=== PATIENT | male | born 1965 | race American Indian/Alaskan Native ===

== ENCOUNTER 2021-05-20 02:37 | Inpatient (IN) | payer SELFPAY ==
[2021-05-20] MEDS ORDERED: NITROGLYCERIN 0.4 MG TAB SUBL SL ONE (02:47)
[2021-05-20] MEDS ORDERED: SODIUM CHLORIDE 0.9% 1000 ML 1,000 ML IV ONE (02:47)
--- NOTE | 2021-05-20 02:47 | Emergency Department Report ---
ED Chest Pain HPI - General Stated Complaint: CHEST PAIN Time Seen by Provider: 05/20/21 02:46 - History of Present Illness Initial Comments: Patient presents by EMS secondary to chest pain. He started having chest pain he states that 2 to 3 days ago. He states that it is worse when he is up moving around. The pain does not really radiate. It is across the chest. He has been short of breath associate with this. Today, getting off work, his symptoms worsened. He called EMS and the patient was transported here. EMS transmitted an EKG that was concerning for ST elevation in V3 and possibly V2. There was no ST depression or reciprocal change noted. Patient was brought here for his presentation. Patient states that he is still having pain. EMS had administered aspirin prior to arrival. - Related Data Allergies Allergy/AdvReac Type Severity Reaction Status Date / Time No Known Allergies Allergy Verified 05/20/21 02:56 Heart Score - HEART Score History: Highly suspicious EKG: Significant ST-depression Age: 45-65 Risk factors: > 3 risk factors or hx of atherosclerotic disease Troponin: < normal limit (Not available at the time of this note) HEART Score: 7 - EKG Read Time Time EKG Completed: 02:41 EKG Read Time: 02:41 ED Review of Systems ROS: Stated complaint: CHEST PAIN Other details as noted in HPI Comment: All other systems reviewed and negative Constitutional: denies: fever Eyes: denies: vision change ENT: denies: throat pain Respiratory: denies: cough Cardiovascular: as per HPI Endocrine: denies: unexplained weight loss Gastrointestinal: denies: abdominal pain Genitourinary: denies: dysuria Musculoskeletal: denies: back pain Skin: denies: rash Neurological: denies: headache Hematological/Lymphatic: denies: easy bruising ED Past Medical Hx - Past Medical History Hx Hypertension: Yes Hx Heart Attack/AMI: Yes - Surgical History Hx Coronary Stent: No Additional Surgical History: Leg stent - Family History Family history: hypertension - Social History Substance Use Type: Other (Prior drug abuse) ED Physical Exam - General Limitations: No Limitations, Other (Pulse ox noted and normal) General appearance: alert, in distress (Mild) - Head Head exam: Present: atraumatic, normocephalic - Eye Eye exam: Present: normal appearance, EOMI. Absent: scleral icterus - ENT ENT exam: Present: normal orophraynx, normal external ear exam - Neck Neck exam: Present: normal inspection. Absent: meningismus - Respiratory Respiratory exam: Present: normal lung sounds bilaterally. Absent: respiratory distress - Cardiovascular Cardiovascular Exam: Present: regular rate, normal rhythm - GI/Abdominal GI/Abdominal exam: Present: soft. Absent: tenderness - Extremities Exam Extremities exam: Present: normal capillary refill. Absent: calf tenderness - Back Exam Back exam: Absent: CVA tenderness (R), CVA tenderness (L) - Neurological Exam Neurological exam: Present: alert, oriented X3, CN II-XII intact. Absent: motor sensory deficit - Psychiatric Psychiatric exam: Present: normal affect, normal mood - Skin Skin exam: Present: diaphoretic ED Course Vital Signs 05/20/21 05/20/21 02:55 02:56 Temperature 97.5 F L Pulse Rate 83 86 Respiratory 18 Rate Blood Pressure 105/75 Blood Pressure 105/75 [Right] O2 Sat by Pulse 98 Oximetry - Reevaluation(s) Reevaluation #1: 05/20/21 02:47 [id number] STEMI was called. EMS have been met upon arrival. The EKG they had transmitted have been reviewed. Patient was questioned. EMS had obtained two other EKGs that were reviewed. These had not been seen prior to patient arrival. These were consistent with progression which is confirmed based on her EKG. Reevaluation #2: 05/20/21 02:55 Dr. Peterson was made aware of the patient's presentation Reevaluation #3: 05/20/21 03:01 The hospitalist did see the patient in the emergency department. SERGEY score - Sergey Score Age > 65: (0) No Aspirin use within the Past 7 Days: (0) No 3 or more CAD Risk Factors: (1) Yes 2 or more Angina events in past 24 hrs: (1) Yes Known CAD with more than 50% Stenosis: (1) Yes Elevated Cardiac Markers: (0) No (Not available at the time of this note) ST Deviation Greater than 0.5mm: (1) Yes SERGEY Score: 4 ED Medical Decision Making - Lab Data Rhythm strip: Normal sinus rhythm without ectopy per monitor observe 10 seconds. - EKG Data -: EKG Interpreted by Me - EKG Data When compared to previous EKG there are: previous EKG unavailable 05/20/21 03:06 EKG obtained at 2:41 AM shows a sinus rhythm at 86. Patient has ST elevation in V1 through the five. There is no ST depression noted. Patient has T wave flattening in three as well as V6. QRS is normal at 95. QT corrected is prolonged at 504. EKG is consistent with STEMI. This is clearly different than the field EKG. The prehospital EKG that was sent showed questionable ST elevation in V3. There was T wave inversion in V6. There were two other prehospital EKGs obtained which actually showed findings consistent with progression. These were not seen prior to patient arrival. There is no old EKG for comparison. - Medical Decision Making Patient presents secondary to chest pain and has evidence of dynamic EKG changes consistent with STEMI. He reportedly has known heart disease and had a heart attack in January of this year. He however states that there was no catheterization done. Regardless, there is no pulse deficit to suggest aortic dissection. He has good breath sounds. I am not concerned for pneumothorax. Patient has no trauma that would suggest injury. Patient be taken emergently to [facility]. Cardiology has already been notified. Critical Care Time: Yes (45 minutes exclusive of all procedures) Critical care attestation.: If time is entered above; I have spent that time in minutes in the direct care of this critically ill patient, excluding procedure time. ED Disposition Clinical Impression: Noncompliance STEMI (ST elevation myocardial infarction) Qualifiers: Involved coronary artery: unspecified coronary artery Qualified Code(s): I21.3 - ST elevation (STEMI) myocardial infarction of unspecified site Disposition: 09 ADMITTED INPATIENT Is pt being admited?: Yes Condition: Stable
[2021-05-20] MEDS ORDERED: HEPARIN 10,000 UNITS/10 ML VIAL IV ONE ×5 (02:50→05:03)
[2021-05-20 03:05] LABS: Basophils % (Auto) 0.4 % (0.0-1.8); Eosinophils # (Auto) 0.2 K/mm3 (0.0-0.4); Eosinophils % (Auto) 1.6 % (0.0-4.3); Hematocrit 37.5 % (35.5-45.6); Hemoglobin 11.8 gm/dl (11.8-15.2); Lymphocytes # (Auto) 1.9 K/mm3 (1.2-5.4); Lymphocytes % (Auto) 20.2 % (13.4-35.0); Mean Corpuscular HGB Conc 31 % (32-34); Mean Corpuscular Volume 84 fl (84-94); Monocytes # (Auto) 0.9 K/mm3 (0.0-0.8); Monocytes % (Auto) 9.4 % (0.0-7.3); Platelet Count 349 K/mm3 (140-440); Red Blood Count 4.45 M/mm3 (3.65-5.03)
[2021-05-20] MEDS ORDERED: HEPARIN/NS 5000 UNIT/500ML 1,000 ML IR ONE (03:14)
[2021-05-20] MEDS ORDERED: METOCLOPRAMIDE 10 MG/2 ML INJ IV ONE (03:14)
[2021-05-20] MEDS ORDERED: HEPARIN 10,000 UNITS/10 ML VIAL ONE (03:15)
[2021-05-20] MEDS ORDERED: VERAPAMIL 5 MG/2 ML INJ ONE (03:15)
[2021-05-20] MEDS ORDERED: LIDOCAINE (2%) 20 MG/1 ML VIAL 20 ML MDV INFILTRATI ONE ×2 (03:15→03:48)
[2021-05-20] MEDS ORDERED: fentaNYL 100 MCG/2 ML INJ ONE (03:15)
[2021-05-20] MEDS ORDERED: MIDAZOLAM 2 MG/2 ML INJ ONE (03:15)
[2021-05-20] MEDS ORDERED: NITROGLYCERIN SYRINGE 3 ML ONE (03:15)
[2021-05-20] MEDS ORDERED: LIDOCAINE PF 100 MG/5 ML (CARDIAC SYRINGE) IV ONE (03:16)
[2021-05-20] MEDS ORDERED: EPINEPHrine 1 MG/10 ML SYRINGE ONE (03:16)
[2021-05-20] MEDS ORDERED: ATROPINE 0.1% (1 MG/10 ML) CARDIAC SYRINGE ONE (03:16)
[2021-05-20] MEDS ORDERED: SODIUM CHLORIDE 0.9% 1000 ML 1,000 ML ONE (03:16)
[2021-05-20] MEDS ORDERED: PHENYLEPHRINE/NS 1,000 MCG/10 ML SYRINGE (OR USE) IV ONE (03:16)
[2021-05-20 03:17] LABS: BUN/Creatinine Ratio 18; Blood Urea Nitrogen 18 mg/dL (9-20); Calcium 8.6 mg/dL (8.4-10.2); Hemolysis Index 3
[2021-05-20 03:20] LABS: INR 0.91 (0.87-1.13)
[2021-05-20 03:21] LABS: Partial Thromboplastin Time 24.3 Sec. (24.2-36.6)
--- NOTE | 2021-05-20 03:25 | History and Physical Report ---
History of Present Illness Date of examination: 05/20/21 Date of admission: 05/20/2021 Chief complaint: Chest Pain History of present illness: 55-year-old -[place]ish male with significant history of hypertension and also history of drug abuse(crack cocaine) currently in the rehab. Presenting to the emergency room today complaining of chest pain which has been ongoing for the past 2 to 3 days. Chest pain is worse upon exertion. Pain is said to be midsternal and that there has been no radiation. There has been associated shortness of breath. There is no known relieving factor. Patient denies any headache or dizziness and denies any diaphoresis. Denies any nausea vomiting and no abdominal pain. Patient states that he has had a similar episode sometime last year and had some stent placement at [facility] in [facility]. Upon arrival in the emergency room, EKG was concerning for ST elevation in V2 and V3. Card Grader was immediately consulted by the ER physician and patient transferred to the [facility]. Patient had been given aspirin prior to arrival in the emergency room. Labs were remarkable for mild hypokalemia of 3.2., Troponin was 0.034. Chest x-ray showed mild CHF NB:Cardiac catheterization showed occluded stent in the mid LAD, underwent intervention of the same resulting in SERGEY-3 flow. However has persistent thr ombus and patient was started on Aggrastat and heparin. Patient needs further intervention. Left ventriculogram showed severe LV dysfunction with akinetic distal anterior wall and apex. Ejection fraction 30 to 35%. Past History Past Medical History: hypertension Past Surgical History: PTCA Social history: smoking (Patient smokes about half a pack of cigarette daily), other (Crack Cocaine Use- In rehab.) Family history: no significant family history Medications and Allergies Allergies Allergy/AdvReac Type Severity Reaction Status Date / Time No Known Allergies Allergy Verified 05/20/21 02:56 Active Meds: Active Medications Sodium Chloride (Nacl 0.9% 1000 Ml) 1,000 mls @ 999 mls/hr IV BOLUS ONE Stop: 05/20/21 03:47 Last Admin: 05/20/21 03:15 Dose: 999 mls/hr Documented by: Review of Systems Constitutional: no fever, no chills Ears, nose, mouth and throat: no nasal congestion, no sore throat Cardiovascular: chest pain, no palpitations Respiratory: no cough, no shortness of breath Gastrointestinal: no abdominal pain, no nausea, no vomiting, no diarrhea Genitourinary Male: no dysuria, no hematuria, no flank pain Musculoskeletal: no neck pain, no low back pain Integumentary: no rash, no pruritis Neurological: no headaches, no confusion Psychiatric: no anxiety, no depression Endocrine: no polyphagia, no polydipsia, no polyuria, no nocturia Exam - Constitutional Vitals: Temp Pulse Resp BP Pulse Ox 97.5 F L 97 H 25 H 112/89 99 05/20/21 02:56 05/20/21 03:15 05/20/21 03:15 05/20/21 03:15 05/20/21 03:15 General appearance: Present: no acute distress, well-nourished - EENT Eyes: Present: PERRL, EOM intact. Absent: scleral icterus ENT: hearing intact, clear oral mucosa, dentition normal - Neck Neck: Present: supple, normal ROM - Respiratory Respiratory effort: normal Respiratory: bilateral: CTA - Cardiovascular Rhythm: regular Heart Sounds: Present: S1 & S2. Absent: gallop, systolic murmur, diastolic murmur, rub, click - Extremities Extremities: no ischemia, pulses intact, pulses symmetrical, No edema, normal temperature, normal color, Full ROM Peripheral Pulses: within normal limits - Abdominal General gastrointestinal: Present: soft, non-tender, non-distended, normal bowel sounds. Absent: mass - Integumentary Integumentary: Present: clear, warm, dry. Absent: rash - Musculoskeletal Musculoskeletal: strength equal bilaterally - Psychiatric Psychiatric: appropriate mood/affect, intact judgment & insight, memory intact, cooperative - Neurologic Neurologic: CNII-XII intact, no focal deficits, moves all extremities HEART Score - HEART Score History: Highly suspicious EKG: Significant ST-depression Age: 45-65 Risk factors: > 3 risk factors or hx of atherosclerotic disease Troponin: 1-3x normal limit (Not available at the time of this note) HEART Score: 8 Results - Labs CBC & Chem 7: 05/20/21 02:53 05/20/21 02:53 Labs: Abnormal lab results 05/20/21 05/20/21 Range/Units 02:53 02:53 MCH 27 L (28-32) pg MCHC 31 L (32-34) % RDW 16.0 H (13.2-15.2) % [place] % (Auto) 9.4 H (0.0-7.3) % [place] # (Auto) 0.9 H (0.0-0.8) K/mm3 Potassium 3.2 L (3.6-5.0) mmol/L Glucose 155 H (75-100) mg/dL Assessment and Plan - Patient Problems (1) STEMI (ST elevation myocardial infarction) Current Visit: Yes Status: Acute Qualifiers: Involved coronary artery: unspecified coronary artery Qualified Code(s): I21.3 - ST elevation (STEMI) myocardial infarction of unspecified site Plan to address problem: Patient being evaluated for cardiac catheterization and possible stent placement Cardiology following. (2) Tobacco abuse Current Visit: Yes Status: Acute Plan to address problem: Patient counseled on quitting tobacco use. Will offer nicotine patch as needed. (3) Hypertension Current Visit: Yes Status: Acute Plan to address problem: We will resume routine home medications and monitor vital signs closely. (4) Hypokalemia Current Visit: Yes Status: Acute Plan to address problem: Potassium will be repleted and will monitor chemistry. (5) DVT prophylaxis Current Visit: Yes Status: Acute Plan to address problem: Patient currently on anticoagulation. (6) Full code status Current Visit: Yes Status: Acute Plan to address problem: Patient is a full code.
--- NOTE | 2021-05-20 03:26 | XRay Report ---
XR chest 1V ap INDICATION / CLINICAL INFORMATION: cp. COMPARISON: None available. FINDINGS: SUPPORT DEVICES: None. HEART /PULMONARY VASCULATURE: The cardiac silhouette is enlarged and pulmonary vasculature congested. LUNGS / PLEURA: No significant pulmonary or pleural abnormality. No pneumothorax. ADDITIONAL FINDINGS: No significant additional findings. IMPRESSION: Mild CHF. Signer Name: Rishi Jensen MD Signed: 05/20/2021 3:21 AM Workstation Name: [id number]
[2021-05-20 03:33] LABS: Chol/HDL Ratio 2.05 %; HDL Cholesterol 52 mg/dL (40-59); LDL Cholesterol,Direct 52 mg/dL (50-130)
[2021-05-20] MEDS ORDERED: NITROGLYCERIN 0.4 MG TAB SUBL SL PRN (03:36)
[2021-05-20] MEDS ORDERED: ONDANSETRON 4 MG/2 ML INJ IV PRN (03:36)
[2021-05-20] MEDS ORDERED: MAGNESIUM HYDROXIDE (MOM) ORAL LIQD UDC PO PRN (03:36)
[2021-05-20] MEDS ORDERED: traMADol 50 MG TAB PO PRN (03:36)
[2021-05-20] MEDS ORDERED: ACETAMINOPHEN 325 MG TAB PO PRN (03:36)
[2021-05-20] MEDS ORDERED: MORPHINE 4 MG/1 ML INJ IV PRN (03:36)
[2021-05-20] MEDS ORDERED: MIDAZOLAM 2 MG/2 ML INJ IV ONE (03:46)
[2021-05-20] MEDS ORDERED: fentaNYL 100 MCG/2 ML INJ IV ONE (03:47)
[2021-05-20] MEDS ORDERED: VERAPAMIL 5 MG/2 ML INJ ART-SHEATH ONE (03:50)
[2021-05-20] MEDS ORDERED: CLOPIDOGREL 300 MG TAB ONE (03:59)
[2021-05-20] MEDS ORDERED: ALUM-MAG HYDROXIDE-SIMETHICONE 200-200-20MG/5ML ORAL LIQD 30 ML ONE (03:59)
[2021-05-20] MEDS ORDERED: HEPARIN/NS 5000 UNIT/500ML 500 ML IR ONE (04:09)
[2021-05-20] MEDS ORDERED: TIROFIBAN/NS 12,500 MCG/250 ML BAG IV ONE (04:25)
[2021-05-20] MEDS ORDERED: TIROFIBAN 12.5 MG/250 ML BOLUS (50 MCG/ML) IV ONE (04:30)
[2021-05-20] MEDS ORDERED: TIROFIBAN/NS 12.5 MG/250 ML DRIP IV ONE (04:35)
[2021-05-20] MEDS ORDERED: CLOPIDOGREL 300 MG TAB PO ONE (05:04)
[2021-05-20] MEDS ORDERED: ALUM-MAG HYDROXIDE-SIMETHICONE 200-200-20MG/5ML ORAL LIQD 30 ML PO ONE (05:04)
[2021-05-20] MEDS ORDERED: HYDROcodone/ACETAMINOPHEN 5-325 MG TAB PO PRN (05:13)
[2021-05-20] MEDS ORDERED: HEPARIN 10,000 UNITS/10 ML VIAL IV PRN (05:26)
--- NOTE | 2021-05-20 05:39 | Consultation ---
History of Present Illness Consult date: 05/20/21 Consult reason: chest pain (acute ST elevation myocardial infarction.) History of present illness: 55-year-old gentleman, in drug rehabilitation unit having chest pain of 2 days duration got worse prior to presentation to the emergency room. EKG showed ST elevations in the anterior leads consistent with acute anterior wall myocardial infarction with ongoing chest pain. He has a STEMI protocol was followed. Patient gives history of having 2 stents put in in January of this year in [facility]. Past History Past Medical History: acute [place], hypertension, hyperlipidemia Social history: smoking (Smokes 10 cigarettes a day. Patient is in rehabilitation for his crack use in the past), other (Crack Cocaine Use- In rehab.) Family history: no significant family history Medications and Allergies Allergies Allergy/AdvReac Type Severity Reaction Status Date / Time No Known Allergies Allergy Verified 05/20/21 02:56 Active Meds: Active Medications Acetaminophen (Acetaminophen 325 Mg Tab) 650 mg PO Q6H PRN PRN Reason: Pain, Mild (1-3) Hydrocodone Bitart/Acetaminophen (Hydrocodone/Acetaminophen 5-325 Mg Tab) 1 each PO Q6H PRN PRN Reason: Pain, Moderate (4-6) Aspirin (Aspirin Ec 325 Mg Tab) 325 mg PO QDAY STEPHANIE Atorvastatin Calcium (Atorvastatin 40 Mg Tab) 40 mg PO QHS STEPHANIE Carvedilol (Carvedilol 3.125 Mg Tab) 3.125 mg PO BID STEPHANIE Clopidogrel Bisulfate (Clopidogrel 75 Mg Tab) 75 mg PO QDAY STEPHANIE Heparin Sodium (Porcine) (Heparin 10,000 Units/10 Ml Vial) 3,300 unit 40 unit/kg (3300 unit) IV Q6H PRN PRN Reason: Anti-Xa Assay < 0.1 units/ml Tirofiban/Sodium Chloride (Aggrastat Drip (12.5 Mg/250 Ml)) 12,500 mcg in 250 mls @ 0 mls/hr IV DIRECT STEPHANIE; Protocol Losartan Potassium (Losartan 25 Mg Tab) 25 mg PO QDAY STEPHANIE Magnesium Hydroxide (Magnesium Hydroxide (Mom) Oral Liqd Udc) 30 ml PO Q4H PRN PRN Reason: Constipation Morphine Sulfate (Morphine 4 Mg/1 Ml Inj) 2 mg IV Q5MIN PRN PRN Reason: Chest Pain unrelieved by NTG Nitroglycerin (Nitroglycerin 0.4 Mg Tab Subl) 0.4 mg SL Q5M PRN PRN Reason: Chest Pain Ondansetron HCl (Ondansetron 4 Mg/2 Ml Inj) 4 mg IV Q8H PRN PRN Reason: Nausea And Vomiting Sodium Chloride (Sodium Chloride 0.9% 10 Ml Flush Syringe) 10 ml IV BID STEPHANIE Sodium Chloride (Sodium Chloride 0.9% 10 Ml Flush Syringe) 10 ml IV PRN PRN PRN Reason: LINE FLUSH Tramadol HCl (Tramadol 50 Mg Tab) 50 mg PO Q6H PRN PRN Reason: Pain, Moderate (4-6) Review of Systems Ears, nose, mouth and throat: no ear pain Cardiovascular: chest pain, shortness of breath, no orthopnea, no palpitations, no syncope Gastrointestinal: no nausea Genitourinary Male: no hematuria Musculoskeletal: no neck stiffness Integumentary: no rash Neurological: no seizures Psychiatric: no memory loss Endocrine: no cold intolerance Hematologic/Lymphatic: no easy bleeding Allergic/Immunologic: no urticaria Physical Examination Vital Signs Pulse BP 83 105/75 05/20/21 02:55 05/20/21 02:55 General appearance: no acute distress, mild distress HEENT: Positive: PERRL Neck: Positive: neck supple, trachea midline Cardiac: Positive: Reg Rate and Rhythm, S4. Negative: Audible Murmur Lungs: Positive: clear to auscultation Neuro: Positive: Grossly Intact Abdomen: Positive: Unremarkable Male genitourinary: Positive: deferred Skin: Positive: Clear Extremities: Absent: edema Results 05/20/21 02:53 05/20/21 02:53 Coagulation 05/20/21 Range/Units 02:53 PT 13.3 (12.2-14.9) Sec. INR 0.91 (0.87-1.13) APTT 24.3 (24.2-36.6) Sec. Lipids 05/20/21 Range/Units 02:53 Triglycerides 43 (2-149) mg/dL Cholesterol 107 (50-199) mg/dL HDL Cholesterol 52 (40-59) mg/dL Cholesterol/HDL Ratio 2.05 % CBC 05/20/21 Range/Units 02:53 WBC 9.4 (4.5-11.0) K/mm3 RBC 4.45 (3.65-5.03) M/mm3 Hgb 11.8 (11.8-15.2) gm/dl Hct 37.5 (35.5-45.6) % Plt Count 349 (140-440) K/mm3 Lymph # (Auto) 1.9 (1.2-5.4) K/mm3 [place] # (Auto) 0.9 H (0.0-0.8) K/mm3 Eos # (Auto) 0.2 (0.0-0.4) K/mm3 Baso # (Auto) 0.0 (0.0-0.1) K/mm3 Comprehensive Metabolic Panel 05/20/21 Range/Units 02:53 Sodium 141 (137-145) mmol/L Potassium 3.2 L (3.6-5.0) mmol/L Chloride 103.7 (98-107) mmol/L Carbon Dioxide 26 (22-30) mmol/L BUN 18 (9-20) mg/dL Creatinine 1.0 (0.8-1.3) mg/dL Glucose 155 H (75-100) mg/dL Calcium 8.6 (8.4-10.2) mg/dL EKG interpretations - EKG Sinus rhythms and dysrhythmias: sinus rhythm (ST elevations in the anterior leads consistent with acute injury.) Assessment and Plan 55-year-old gentleman with history of chronic smoking, history of hypertension and hyperlipidemia with history of myocardial infarction and stent placement in January of this year in [place], [place], presently he says he is taking medications but is not sure what medications he is taking. He is in rehabilitation unit for crack cocaine and for the last 2 days he is having anterior chest pain and while he is sitting on the bench ,he is chest pain got worse and was brought to the emergency room and this showed acute ST elevation myocardial infarction involving the anterior wall and patient was taken to the emergency catheterization. Cardiac catheterization showed occluded stent in the mid LAD, underwent intervention of the same resulting in SERGEY-3 flow. However has persistent thrombus and patient was started on Aggrastat and heparin. Patient needs further intervention. Left ventriculogram showed severe LV dysfunction with akinetic distal anterior wall and apex. Ejection fraction 30 to 35%. Patient is in sinus rhythm and no evidence of congestive heart failure. Plan at this time is to start him back on aspirin and clopidogrel needs in addition to atorvastatin and carvedilol and losartan. We'll continue him on Aggrastat and heparin. He needs repeat catheterization and he may need intervention of the LAD with large occluded diagonal branch which is filling late. Also has significant disease in a large marginal branch. We'll reevaluate him and continue present medical therapy at this time. Patient is hemodynamically stable and chest pain-free at the time of 40 at the time of transfer to the ICU. - Patient Problems (1) STEMI (ST elevation myocardial infarction) Current Visit: Yes Status: Acute Qualifiers: Involved coronary artery: unspecified coronary artery Qualified Code(s): I21.3 - ST elevation (STEMI) myocardial infarction of unspecified site (2) Hypertension Current Visit: Yes Status: Acute (3) Smoking Current Visit: Yes Status: Acute
[2021-05-20] MEDS ORDERED: POTASSIUM CHLORIDE 10 MEQ 10 MEQ/100 ML BAG IV ONE (05:41)
[2021-05-20] MEDS ORDERED: HEPARIN/ 0.45% NACL DRIP 25,000 UNIT/500 ML BAG IV SCH (06:00)
[2021-05-20] MEDS ORDERED: TIROFIBAN/NS 12,500 MCG/250 ML BAG IV SCH (06:00)
--- NOTE | 2021-05-20 07:22 | Cardiac Catherization Report ---
DATE OF SERVICE: 05/20/2021 CARDIAC CATHETERIZATION AND CORONARY INTERVENTION REPORT INDICATIONS: The patient is a 55-year-old -[place] gentleman, who presented to the Emergency Room with chest pain of 2 days' duration and got worse prior to presentation. EKG showed sinus rhythm with ST elevations in the anterior leads, consistent with acute injury. Hence, the patient was taken to the catheterization laboratory on an emergency basis. The patient's history includes in 01/2021, the patient apparently had what appears to be acute myocardial infarction and he had 2 stents put in. Subsequently, he was supposed to be on medications including statin, beta morena and MIKE inhibitor, in addition to antiplatelet agents. He is not sure of the medications he is taking. He was in a rehabilitation unit for cocaine use and he was having chest pain of 2 days' duration. Prior to presentation, the patient's chest pain got worse and hence was evaluated in the Emergency Room, and was noted to have acute anterior wall myocardial infarction with ST elevations in the anterior leads. The patient was taken to the catheterization laboratory on an emergency basis as a part of the STEMI protocol. DESCRIPTION OF PROCEDURE: The patient was sedated with IV Versed and fentanyl after evaluating his clinical status, which is critical. He received IV Versed and fentanyl. Subsequently, he was prepared in the standard fashion and local anesthesia was given in the right wrist area. Right radial artery access was obtained using a 21-gauge arterial puncture needle. Subsequently, 5-Pakistani slender sheath was introduced. Initially, a 5-Pakistani multipurpose catheter was used to engage the left coronary artery, and subsequently this was changed to EBU 3.5 guiding catheter and engaged the left coronary artery. This showed occluded stent in the mid LAD, with no visualization of the distal vessel. SERGEY 0 flow was noted. The circumflex artery showed a significant lesion in the proximal part of the OM1, up to 90%. Right coronary artery showed mild disease. Left ventriculogram showed severe akinesis of the distal anterior wall and the apex. Subsequently, the patient was given heparin as the anticoagulant and using 0.014 inch [place] XT guidewire, which was advanced into the septal branch initially, lesion was dilated with 2.5 x 15 mm Euphora balloon multiple times, with initially evidence of SERGEY 3 flow. Subsequently, again it clotted. Wire was redirected into the distal LAD and lesion was dilated with a 2.5 x 15 mm balloon, and followed again with multiple dilations with 3.0 x 20 mm Euphora balloon up to 12 atmospheres, and finally 18 atmospheres. This resulted in SERGEY 3 flow. In-between, the patient was started on Aggrastat because of his recurrent thrombosis and also underwent thrombectomy with a catheter using the [place] catheter. Still, there was persistent evidence of hazy lesion, consistent with thrombus. After these multiple interventions, there was SERGEY 3 flow in the distal LAD and distal LAD does not have any significant disease. Considering the persistent thrombus in the stented area, it was decided to continue Aggrastat and heparin, and evaluate him afterwards. At the end of the procedure, the patient was chest pain free, hemodynamically stable. The patient's EKG showed sinus rhythm. The patient was comfortable. Blood pressure had been stable at around 110/70. Cardiac catheterization findings are as follows: 1. Left ventriculogram showed mildly enlarged left ventricle, with akinesis of the distal anterior wall and apex. The LVEDP was found to be 34 mmHg. Base of the ventricle moving well. 2. Right coronary artery is a dominant vessel, shows mild smooth irregularities. Arises normally. 3. Left coronary artery shows left main to be very short, immediately dividing into LAD and circumflex branches. 4. LAD, as mentioned above, showed evidence of thrombus in the stent, with no distal flow prior to the procedure and SERGEY 3 flow postprocedure. 5. Circumflex artery showed lesion in a large marginal branch proximally approaching 80%. At this time, as mentioned, he underwent intervention of the thrombotically occluded mid LAD stent with multiple balloon angioplasties and thrombectomy with still persistent thrombus, but SERGEY 3 flow. We will continue IV Aggrastat and heparin, and reevaluate for further intervention. The patient was transferred to the room in stable condition. FINAL IMPRESSION: Uncomplicated, successful reperfusion of the left anterior descending with balloon angioplasty, with persistent thrombus. Lesion appears thrombotic with acute occlusion of stent. No complication of perforation or dissection or distal embolization noted. Also, at the end of the procedure the patient is comfortable, breathing normally, with no focal deficits. The patient's moderate sedation started at 0347 hours and ended at 4:53 a.m. TID: [id number] RECEIPT: [id number] AISHWARYA/SUSANNA FRANCISD
[2021-05-20 10:21] LABS: Blood Urea Nitrogen 14 mg/dL (9-20); Calcium 8.1 mg/dL (8.4-10.2); Hemolysis Index 3
[2021-05-20 10:23] LABS: Hematocrit 35.7 % (35.5-45.6); Hemoglobin 11.4 gm/dl (11.8-15.2)
[2021-05-20 10:24] LABS: BUN/Creatinine Ratio 20
--- NOTE | 2021-05-20 10:41 | Event Note ---
Date: 05/20/21 This is a 55-year-old AA male with past medical history of HTN, HLD, NE s/p X2 stents, noncompliant with medications, current smoker, and crack cocaine abuse admitted for STEMI s/p emergent cardiac cath which showed occluded stent in the LAD. Patient is seen and examined at the bedside. Fully AAOx4, on RA, denied any pain nor any discomfort, hemodynamically stable. Patient is on heparin and aggrastat gtts. Per cardio, plan to go back to lab aide in the am for additional intervention. Keep patient NPO after midnight.
[2021-05-20] MEDS: LOSARTAN 25 MG TAB PO SCH (10:42)
[2021-05-20] MEDS: carvediloL 3.125 MG TAB PO SCH ×2 (10:43→21:30)
[2021-05-20 10:56] LABS: Partial Thromboplastin Time 118.2 Sec. (24.2-36.6)
--- NOTE | 2021-05-20 12:09 | Consultation ---
History of Present Illness Consult date: 05/20/21 Requesting physician: BRADY OCHOA Reason for consult: other (STEMI) History of present illness: PULMONARY/CCM CONSULT NOTE (Full dictation # [id number]) Please see dictated notes for full details Past History Past Medical History: hypertension Past Surgical History: PTCA Social history: smoking (Patient smokes about half a pack of cigarette daily), other (Crack Cocaine Use- In rehab.) Family history: no significant family history Medications and Allergies Allergies Allergy/AdvReac Type Severity Reaction Status Date / Time No Known Allergies Allergy Verified 05/20/21 02:56 Active Meds: Active Medications Acetaminophen (Acetaminophen 325 Mg Tab) 650 mg PO Q6H PRN PRN Reason: Pain, Mild (1-3) Hydrocodone Bitart/Acetaminophen (Hydrocodone/Acetaminophen 5-325 Mg Tab) 1 each PO Q6H PRN PRN Reason: Pain, Moderate (4-6) Aspirin (Aspirin Ec 325 Mg Tab) 325 mg PO QDAY STEPHANIE Atorvastatin Calcium (Atorvastatin 40 Mg Tab) 40 mg PO QHS STEPHANIE Carvedilol (Carvedilol 3.125 Mg Tab) 3.125 mg PO BID STEPHANIE Last Admin: 05/20/21 10:43 Dose: 3.125 mg Documented by: Clopidogrel Bisulfate (Clopidogrel 75 Mg Tab) 75 mg PO QDAY STEPHANIE Tirofiban/Sodium Chloride (Aggrastat Drip (12.5 Mg/250 Ml)) 12,500 mcg in 250 mls @ 15 mls/hr IV DIRECT STEPHANIE; Protocol Stop: 05/21/21 05:59 Heparin Sodium/Sodium Chloride (Heparin/ 0.45% Nacl-25,000 Unit/500 Ml) 25,000 unit in 500 mls @ 20 mls/hr IV TITRATE STEPHANIE; Protocol Last Admin: 05/20/21 06:49 Dose: 1,000 units/hr, 20 mls/hr Documented by: Losartan Potassium (Losartan 25 Mg Tab) 25 mg PO QDAY STEPHANIE Last Admin: 05/20/21 10:42 Dose: 25 mg Documented by: Magnesium Hydroxide (Magnesium Hydroxide (Mom) Oral Liqd Udc) 30 ml PO Q4H PRN PRN Reason: Constipation Morphine Sulfate (Morphine 4 Mg/1 Ml Inj) 2 mg IV Q5MIN PRN PRN Reason: Chest Pain unrelieved by NTG Nitroglycerin (Nitroglycerin 0.4 Mg Tab Subl) 0.4 mg SL Q5M PRN PRN Reason: Chest Pain Ondansetron HCl (Ondansetron 4 Mg/2 Ml Inj) 4 mg IV Q8H PRN PRN Reason: Nausea And Vomiting Sodium Chloride (Sodium Chloride 0.9% 10 Ml Flush Syringe) 10 ml IV BID STEPHANIE Last Admin: 05/20/21 10:43 Dose: 10 ml Documented by: Sodium Chloride (Sodium Chloride 0.9% 10 Ml Flush Syringe) 10 ml IV PRN PRN PRN Reason: LINE FLUSH Tramadol HCl (Tramadol 50 Mg Tab) 50 mg PO Q6H PRN PRN Reason: Pain, Moderate (4-6) Physical Examination Vital signs: Vital Signs Pulse BP 83 105/75 05/20/21 02:55 05/20/21 02:55 Results - Laboratory Findings CBC and BMP: 05/20/21 09:28 05/20/21 09:28 PT/INR, D-dimer PT 14.3 Sec. (12.2-14.9) 05/20/21 09:28 INR 1.00 (0.87-1.13) 05/20/21 09:28 Abnormal lab findings: Abnormal Labs 05/20/21 05/20/21 05/20/21 02:53 02:53 09:28 Hgb MCH 27 L MCHC 31 L RDW 16.0 H [place] % (Auto) 9.4 H [place] # (Auto) 0.9 H APTT Potassium 3.2 L Creatinine Glucose 155 H Calcium Troponin T 0.034 H 4.660 H* D 05/20/21 05/20/21 05/20/21 09:28 09:28 09:28 Hgb 11.4 L MCH MCHC RDW [place] % (Auto) [place] # (Auto) APTT 118.2 H* Potassium Creatinine 0.7 L Glucose 103 H Calcium 8.1 L Troponin T
[2021-05-20] MEDS ORDERED: SODIUM CHLORIDE 0.9% 500 ML 500 ML IV SCH (14:00)
[2021-05-20] MEDS ORDERED: ASPIRIN EC 325 MG TAB PO SCH (14:00)
--- NOTE | 2021-05-20 14:19 | Event Note ---
Date: 05/20/21 Patient resting comfortably in bed. Right radial cath site inspected no bleeding or hematoma noted distal PMS intact. Plan for left heart cathet erization in a.m. n.p.o. after midnight.
--- NOTE | 2021-05-20 23:30 | Consultation ---
DATE OF CONSULTATION: 05/20/2021 PULMONARY CRITICAL CARE CONSULT NOTE CONSULTING PHYSICIAN: Dr. Abbott. REASON FOR CONSULTATION: Acute ST-elevation myocardial infarction. CHIEF COMPLAINT AND HISTORY OF PRESENT ILLNESS: As follows: The patient is a 55-year-old male with a past medical history significant amongst other things for a diagnosis of hypertension, but also crack cocaine abuse and reportedly history of coronary artery disease, who presented to the Emergency Room complaining of chest pain. He stated that he was sitting with some friends when all of a sudden he felt the pain. He had felt it before, reminded him of his prior cardiac arrest. He started to feel weak. He felt dizzy. He states he called 911 and he was brought into the Emergency Room. In the Emergency Room, the EKG was suspicious for ST elevations in V2 and V3. He had received aspirin prior to arrival. Troponin was not significantly elevated. Electrolytes, potassium was low. The cath team was called and ultimately he was taken to the laboratory inspector. It seems like the cath showed an occluded stent in the mid LAD. Post-revascularization, he was started on Aggrastat, IV heparin and brought into the critical care unit where I stopped by to see him. Of note, his ejection fraction was found to be 30-35%. When I stopped by to see him, he was getting an EKG done and was just about to get an echocardiogram. He was feeling better. He admitted to a 10+ pack year tobacco smoking history. Also, admitted to the medication noncompliance. This really is as much of the history of presentation as I have. PAST MEDICAL HISTORY: 1. Hypertension. 2. Coronary artery disease. PAST SURGICAL HISTORY: He has had coronary artery stenting in the past. MEDICATIONS: He was on at the time I stopped by to see him, according to the medication administration record included the following: Tylenol 650 mg p.o. q. 6 hours p.r.n. mild pain or fevers, [place] 5/325 one tablet p.o. q. 6 hours p.r.n. moderate pain, aspirin 325 mg p.o. daily, Lipitor 40 mg p.o. at bedtime, Coreg 3.125 mg p.o. b.i.d., Plavix 75 mg p.o. daily, IV heparin drip was going per ACS protocol, Cozaar 25 mg p.o. daily, morphine sulfate 2 mg IV q. 4 hours p.r.n. moderate pain, sublingual nitroglycerin 0.4 mg sublingually q. 5 minutes p.r.n. chest pain, Zofran 4 mg IV q. 8 hours p.r.n. nausea and vomiting. He was on an Aggrastat drip also adjusted per protocol. ALLERGIES: No known drug allergies. DIET: Well built gentleman. Denies acute weight loss or gain in the preceding few weeks to months. SOCIAL HISTORY: Lives in the community. He does have a 10+ pack year tobacco smoking history. He has a history of crack cocaine abuse, admits to continued abuse. FAMILY HISTORY: Otherwise unknown. REVIEW OF SYSTEMS: No loss of consciousness. No new onset seizures. No new onset focal weakness. Denies gross hematochezia or melena. Denies gross hematuria. Denies hematemesis or hemoptysis. He denies any bleeding disorders as far as he knows. Denies heat or cold intolerance. Denies polydipsia or polyuria. Complete 13-system review of systems obtained. Pertinent positives and/or negatives as in body of history above, otherwise noncontributory. PHYSICAL EXAMINATION: VITAL SIGNS: At presentation, he was afebrile, temperature 97.5 degrees Fahrenheit, pulse of 83, respiratory rate of 18, blood pressure 105/75, O2 sats were 98%, inspired oxygen concentration at that time was not recorded. When I stopped by to see him, he was on 2 liters nasal cannula, O2 sats were 99-100%. GENERAL: He is a middle-aged male. Normocephalic, atraumatic, resting in bed with mildly increased respiratory effort at rest. HEAD, EYES, EARS, NOSE AND THROAT: Anicteric. No conjunctival erythema. Oropharynx was moist. He had poor oral dentition. He was partially edentulous. Grossly, there were no palpable lymph nodes in the supraclavicular or submandibular lymph node chains. NECK: No gross jugular venous distention, no thyromegaly. LUNGS: Auscultation of both lung soliman, really unremarkable. Good bilateral air movement, perhaps slightly diminished breath sounds. No wheezing. HEART: Sounds 1 and 2 are heard at the time of my evaluation, regular rate and rhythm without overt rubs or murmurs. ABDOMEN: Soft, full, bowel sounds are positive, nontender, no palpable hepatosplenomegaly. EXTREMITIES: Without overt digital clubbing or cyanosis, no pedal edema. Pedal pulses are 2+ bilaterally. NEUROLOGIC: Pupils are equal, round, about 4 mm, reactive to light. Extraocular muscle movements were intact. He had spontaneous movements to all 4 extremities. SKIN: Normal turgor in the areas I examined without overt rubs or murmurs. I believe he had a radial approach to his heart cath, right radial. There was a dressing over it. PSYCHIATRIC: Mood was normal. Affect was appropriate. He had intact judgment and insight. LABORATORY DATA: From my review are as follows: Admission white cell count 9400, hemoglobin 11.8, hematocrit 37.5, platelet count 349. INR 0.91. Serum sodium 141, potassium 3.2, chloride 104, bicarbonate 26, BUN 18, creatinine 1.0, glucose was 155. Troponin was 0.034. LDL cholesterol was 52. Troponin is up to 4.66 post-cath. No microbiology studies for my review. Chest x-ray was done. It is poorly positioned. The film is rotated to the left, mildly increased interstitial markings and cardiomegaly, consistent with congestive heart failure. No gross pneumothorax, no gross bony fracture. ASSESSMENT: 1. Acute ST-elevation myocardial infarction. 2. Tobacco use disorder. 3. History of hypertension. 4. Hypokalemia. 5. Medication and medical care noncompliance. 6. Polysubstance abuse. PLAN: He will continue on the ACS protocol. He will continue on the Aggrastat drip as well as the IV heparin. I will defer to the Cardiology team. Secondary prevention measures have been started including lipid control, blood pressure control. He has been started on Coreg and Cozaar in light of his congestive heart failure. I will defer the need for empiric diuresis to the auto apprentice mechanic. I have strongly counseled tobacco and drug abstinence. He is going to be placed on GI prophylaxis with Pepcid in light of the anticoagulation. Flu and pneumonia vaccination will be addressed per protocol. Thank you very much for the consult. We will follow along and make further recommendations as picture progresses/becomes clearer. I should also mention supplemental oxygen will be continued to keep sats greater than or equal to about 90%. He is critically ill, on life-sustaining interventions, at very high risk of from cardiopulmonary system decompensation. At this time, I spent about 35-40 minutes of critical care time without overlap and excluding any procedural time that may be necessary. TID: [id number] RECEIPT: [id number] ABBIE
--- NOTE | 2021-05-21 03:20 | XRay Report ---
XR chest 1V ap INDICATION / CLINICAL INFORMATION: post pci. COMPARISON: Radiograph from yesterday. FINDINGS: SUPPORT DEVICES: None. HEART /PULMONARY VASCULATURE: Unchanged. LUNGS / PLEURA: Low lung volumes remain. No significant pulmonary or pleural abnormality. No pneumoth orax. IMPRESSION: 1. No acute findings. No significant interval change. Signer Name: Rishi Jensen MD Signed: 05/21/2021 3:16 AM Workstation Name: [id number]
[2021-05-21 04:28] LABS: Hematocrit 37.5 % (35.5-45.6); Mean Corpuscular HGB Conc 32 % (32-34); Mean Corpuscular Volume 84 fl (84-94); Platelet Count 329 K/mm3 (140-440); Red Blood Count 4.48 M/mm3 (3.65-5.03); Red Cell Distribution Width 15.5 % (13.2-15.2)
[2021-05-21 04:40] LABS: INR 0.96 (0.87-1.13)
[2021-05-21 04:49] LABS: BUN/Creatinine Ratio 14; Blood Urea Nitrogen 13 mg/dL (9-20); Calcium 8.3 mg/dL (8.4-10.2); Hemolysis Index 3
[2021-05-21] MEDS ORDERED: ASPIRIN EC 325 MG TAB PO SCH (06:00)
[2021-05-21] MEDS: SODIUM CHLORIDE 0.9% 1000 ML 1,000 ML IV SCH ×2 (06:10→07:24)
[2021-05-21] MEDS: CLOPIDOGREL 75 MG TAB PO SCH (06:10)
[2021-05-21] MEDS: MIDAZOLAM 2 MG/2 ML INJ ONE ×2 (07:21→08:17)
[2021-05-21] MEDS: LIDOCAINE (2%) 20 MG/1 ML VIAL 20 ML MDV INFILTRATI ONE ×2 (07:22→08:17)
[2021-05-21] MEDS: fentaNYL 100 MCG/2 ML INJ ONE ×2 (07:22→08:17)
[2021-05-21] MEDS: HEPARIN 10,000 UNITS/10 ML VIAL ONE ×2 (07:23→08:05)
[2021-05-21] MEDS: VERAPAMIL 5 MG/2 ML INJ ONE ×2 (07:23→08:18)
[2021-05-21] MEDS: HEPARIN/NS 5000 UNIT/500ML 1,000 ML IR ONE ×2 (07:25→08:18)
[2021-05-21] MEDS: NITROGLYCERIN SYRINGE 3 ML ONE ×2 (07:25→08:20)
[2021-05-21] MEDS ORDERED: DOBUTamine/D5W 500 MG/250 ML 500 MG/250 ML BAG IV ONE (08:22)
[2021-05-21] MEDS ORDERED: DOPamine/D5W 800 MG/250 ML 800 MG/250 ML BAG IV ONE (08:25)
[2021-05-21] MEDS ORDERED: traMADol 50 MG TAB PO PRN (08:46)
[2021-05-21] MEDS ORDERED: HYDROcodone/ACETAMINOPHEN 5-325 MG TAB PO PRN (08:46)
[2021-05-21 09:42] LABS: Total Cells Counted 100
--- NOTE | 2021-05-21 09:43 | Progress Note ---
Assessment and Plan Continue DAPT (ASA, Plavix), high-intensity statin, BB, and ARB. May decrease Losartan to 25mg daily if BP remains borderline low. Pt seen in conjunction with Dr. Sotero Zelaya, who agrees with the assessment and plan of care. - Patient Problems (1) STEMI (ST elevation myocardial infarction) Current Visit: Yes Status: Acute Qualifiers: Involved coronary artery: LAD coronary artery Qualified Code(s): I21.02 - ST elevation (STEMI) myocardial infarction involving left anterior descending coronary artery (2) Ischemic cardiomyopathy Current Visit: Yes Status: Acute (3) CAD (coronary artery disease) Current Visit: Yes Status: Chronic Qualifiers: Coronary Disease-Associated Artery/Lesion type: [place] artery [place] vs. transplanted heart: [place] heart (4) Stented coronary artery Current Visit: Yes Status: Chronic (5) Hypertension Current Visit: Yes Status: Chronic Qualifiers: Hypertension type: primary hypertension Qualified Code(s): I10 - Essential (primary) hypertension (6) Tobacco abuse Current Visit: Yes Status: Chronic (7) Cocaine abuse Current Visit: Yes Status: Chronic Subjective Date of service: 05/21/21 Principal diagnosis: STEMI Interval history: S/p PCI of LAD this AM. Pt tolerated procedure well. Currently stable with no cardiac complaints. Objective Last Vital Signs Temp 100.6 F H 05/21/21 04:00 Pulse 86 05/21/21 06:30 Resp 20 05/21/21 06:30 BP 100/76 05/21/21 06:30 Pulse Ox 96 05/21/21 09:01 - Physical Examination General: No Apparent Distress HEENT: Positive: EOMI, Normocephaly Neck: Positive: neck supple, trachea midline. Negative: JVD/HJR Cardiac: Positive: Reg Rate and Rhythm, S1/S2 Lungs: Positive: clear to auscultation Neuro: Positive: Grossly Intact Abdomen: Positive: Soft. Negative: Tender Skin: Negative: Rash Incision: Cardiac Cath Site (R radial & R groin clean/dry/intact, no evidence of bleeding or hematoma) Musculoskeletal: No Pain Extremities: Present: lower extr. pulses. Absent: edema - Labs and Meds Coagulation 05/20/21 05/21/21 Range/Units 09:28 04:03 PT 14.3 13.9 (12.2-14.9) Sec. INR 1.00 0.96 (0.87-1.13) APTT 118.2 H* (24.2-36.6) Sec. CBC 05/20/21 05/21/21 Range/Units 09:28 04:03 WBC 7.4 (4.5-11.0) K/mm3 RBC 4.48 (3.65-5.03) M/mm3 Hgb 11.4 L 12.0 (11.8-15.2) gm/dl Hct 35.7 37.5 (35.5-45.6) % Plt Count 322 329 (140-440) K/mm3 Comprehensive Metabolic Panel 05/20/21 05/21/21 Range/Units 09:28 04:03 Sodium 140 136 L (137-145) mmol/L Potassium 4.4 D 3.6 (3.6-5.0) mmol/L Chloride 105.3 102.0 (98-107) mmol/L Carbon Dioxide 24 23 (22-30) mmol/L BUN 14 13 (9-20) mg/dL Creatinine 0.7 L 0.9 (0.8-1.3) mg/dL Glucose 103 H 112 H (75-100) mg/dL Calcium 8.1 L 8.3 L (8.4-10.2) mg/dL - Imaging and Cardiology EKG: report reviewed, image reviewed Echo: report reviewed (05/20/2021 - EF 35-40%, severe akinesis of apex wall, hypokinesis of inferoseptal wall, mild LVH, mild-mod MR) Cardiac cath: report reviewed - Telemetry EKG Rhythm: Sinus Rhythm - EKG Sinus rhythms and dysrhythmias: sinus rhythm Myocardial infarction: anterior TN (acute or rec
[2021-05-21 09:44] LABS: Ovalocytes Few; Platelet Estimate Consistent w Auto
--- NOTE | 2021-05-21 10:25 | Electrocardiograph Report ---
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
--- NOTE | 2021-05-21 10:27 | Electrocardiograph Report ---
[facility] Test Date: 2021-05-20 Test Time: 07:51:54 Pat Name: CAITLYN BRISCOE Department: Room: A255 1 Gender: M Compliance Mgr: LISBETH : 1965 Requested By: SHREE PATEL Order Number: [id number] Reading MD: Anamaria Ngo Measurements Intervals [place] Rate: 94 P: 52 [place]: 164 QRS: 6 QRSD: 92 T: 251 QT: 406 QTc: 508 Interpretive Statements Sinus rhythm Anterolateral infarct, age indeterminate Prolonged QT interval Compared to ECG 05/20/2021 02:41:25 Acute anterior wall STEMI in evolution Electronically Signed On 05-21-2021 10:27:28 EST by Anamaria Ngo
--- NOTE | 2021-05-21 10:29 | Electrocardiograph Report ---
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
--- NOTE | 2021-05-21 10:38 | Electrocardiograph Report ---
[facility] Test Date: 2021-05-21 Test Time: 07:49:56 Pat Name: CAITLYN BRISCOE Department: Room: A255 1 Gender: M Surveillance Supervisor: THEA : 1965 Requested By: SHREE PATEL Order Number: [id number] Reading MD: Anamaria Ngo Measurements Intervals [place] Rate: 89 P: 55 [place]: 158 QRS: 42 QRSD: 99 T: 185 QT: 457 QTc: 556 Interpretive Statements Sinus rhythm Deep T wave inversions consistent with anterolateral ischemia Prolonged QT interval Compared to ECG 05/20/2021 10:55:22 Acute anterolateral ischemia is now evident Electronically Signed On 05-21-2021 10:38:06 EST by Anamaria Ngo
[2021-05-21] MEDS ORDERED: DOPamine/D5W 800 MG/250 ML 800 MG/250 ML BAG IV SCH (11:00)
--- NOTE | 2021-05-21 11:11 | Cardiac Catherization Report ---
DATE OF PROCEDURE: 05/21/2021 CARDIAC CATHETERIZATION REFERRING PHYSICIAN: Dr. Peterson. INDICATIONS FOR PROCEDURE: The patient came to the Emergency Room 2 days ago with an acute anterior MS and stent thrombosis. The patient underwent PCI by Dr. Peterson to restore flow in the LAD. The patient had a jailed diagonal, which had SERGEY 3 flow. He also had a culprit 90% OM1 stenosis. He was admitted, started on IIB/IIIA and heparin, and chest pain improved. He is here for staged PCI of his OM lesion. He also had an echocardiogram, which revealed anterior apical dyskinesis, ejection fraction of 35-40%. He is brought here for staged PCI. Risks, benefits and alternatives discussed. PROCEDURE IN DETAIL: The patient was brought to dental laboratory technician apprentice in a postabsorptive state, prepped and draped in sterile fashion. Aki's test in right hand was normal. A 2 mL of 2% lidocaine used to anesthetize the right wrist. A standard 6-[place] sheath was used to cannulate the right radial artery via modified Seldinger technique. All exchanges performed to exchange a J-tip guidewire. An EBU 3.5 guide used to engage the left main without difficulty. Angiography was performed in multiple projections. Left main without significant disease, bifurcates into left anterior descending and left circumflex. The LAD stent is widely patent. SERGEY 3 flow in the jailed diagonal. He also has a 95-99% complex proximal OM1 stenosis. Next, we decided to proceed with PCI. Heparin was given. Abnormal ACT is confirmed. The patient reloaded with aspirin and Plavix. We used a [place] wire to cross the lesion without difficulty. We direct stented with an [place] 2.75 x 22 drug-eluting stent deployed at 12 ANTONIO for 30 seconds. Excellent angiographic result. Intravascular ultrasound was performed, which reveals a well-opposed and well-expanded stent. No significant disease in the proximal circumflex or left main. Final angiogram reveals SERGEY 3 flow, excellent result. No complications. The patient tolerated the procedure well. He has borderline soft blood pressures to begin with. Systolics were in the 80s and 90s. He will hold off antihypertensives moving forward. I directly supervised the administration of moderate sedation with fentanyl and Versed from 8:13 a.m. to 8:45 a.m. No immediate complications. CONCLUSIONS: 1. Successful IVUS-guided stage PCI of 99% stenosis of OM1 with placement of drug-eluting stent ([place] 2.75 x 22) with excellent final angiographic and ultrasonographic results and 0% residual stenosis with SERGEY 3 flow. 2. Patent LAD stent with SERGEY 3 flow in jailed diagonal. The patient will be taken back to the ICU, wean off very low-dose dopamine. He is entirely asymptomatic clinically and electrically stable. No chest pain. Continue aspirin and Plavix therapy. The patient was noncompliant with medications. We had another long discussion with the patient regarding importance of compliance with medications, specifically dual antiplatelet therapy. Stable cardiac status. TID: [id number] RECEIPT: [id number] BRANDO/MIKAELA/MARGARET
--- NOTE | 2021-05-21 11:21 | Progress Note ---
Assessment and Plan Assessment and plan: This is a 55-year-old AA male with past medical history of HTN, HLD, CA s/p X2 stents, noncompliant with medications, current smoker, and crack cocaine abuse admitted for STEMI. Hospital Course to Date: 05/20/21- Patient is seen and examined at the bedside. Fully AAOx4, on RA, denied any pain nor any discomfort, hemodynamically stable. Patient is on heparin and aggrastat gtts. Per cardio, plan to go back to prosthetics lab technician in the am for additional intervention. Keep patient NPO after midnight. 05/21/21- Patient is s/p cardiac cath this am, succesful drug-eluting stent in the OM1. Patient is drowsy this am but easily arousable, on RA. On low dose dopamine drip for hypotension post procedure, titrate dopamine gtt off for MAP goal greater than 65. Continue cont. IVF for now. Assessment and Plan #STEMI (ST elevation myocardial infarction) #H/o CA with previous stents #H/o Hypertension - Presented with ST elevation and elevated troponin - Cardiology on consult, appreciated recommendations - 05/20- s/p emergent cardiac cath, successful reperfusion of the LAD stent - 05/21 back to prosthetics lab technician for drug-eluting stent placement in the OM1. - Patient is now chest pain free - SR on the monitor - On low dose dopamine gtt for hypotension post procedure - Continue blood pressure monitor per protocol - Titrate pressor for a MAP goal greater than 65 - Continue ASA, Plavix, statin, BB, and ARB per cardio - Cardiac rehab and education #Tobacco Abuse #Cocaine Abuse - Patient currently in a detox rehab facility for crack and cocaine addiction - Plan is for patient to be discharge back to the rehab facility - Case management on the case - Patient counseled on quitting tobacco use. - Will offer nicotine patch as needed #Hypokalemia- improved - K repleted - Monitor and replace electrolytes as needed - Strict intake and output - Avoid nephrotoxic medications; Renally dose medications - Continue current IVF - Trend BMP #DVT prophylaxis - SCDs to bilateral lower extremities while in bed The high probability of a clinically significant, sudden or life threatening deterioration of the [multiple] system(s) required my full and direct attention, intervention and personal management. The aggregate critical care time was [40] minutes. This time is in addition to time spent performing reported procedures but includes the following: [x] Data Review and interpretation [x] Patient assessment and monitoring of vital signs [x] Documentation [x] Medication orders and management Disposition Plan: ICU Total Time Spent with Patient (Minutes): 40 History Interval history: Patient seen and examined at the bedside. s/p cardiac cath, drowsy but fully A AO, on RA, denied any pain nor any discomfort. On low dose dopamine gtt for hypotension post procedure. JAYASHREE overnight Hospitalist Physical - Constitutional Vitals: Temp Pulse Resp BP Pulse Ox 100.6 F H 86 26 H 79/54 96 05/21/21 04:00 05/21/21 10:30 05/21/21 10:30 05/21/21 10:30 05/21/21 10:30 General appearance: Present: no acute distress, well-nourished - EENT Eyes: Present: PERRL, EOM intact ENT: hearing intact, clear oral mucosa - Neck Neck: Present: normal ROM - Respiratory Respiratory effort: normal Respiratory: bilateral: diminished - Cardiovascular Rhythm: regular Heart Sounds: Present: S1 & S2 - Extremities Extremities: no ischemia, pulses intact, pulses symmetrical Peripheral Pulses: within normal limits - Abdominal General gastrointestinal: soft, non-tender, normal bowel sounds - Integumentary Integumentary: Present: clear, warm, dry - Psychiatric Psychiatric: cooperative, other ([place]) - Neurologic Neurologic: moves all extremities, other ([place]) HEART Score - HEART Score EKG: Significant ST-depression Age: 45-65 Risk factors: > 3 risk factors or hx of atherosclerotic disease Troponin: Troponin T 6.820 ng/mL (0.00-0.029) H* D 05/21/21 04:03 Troponin: 1-3x normal limit (Not available at the time of this note) Results - Labs CBC & Chem 7: 05/21/21 04:03 05/21/21 04:03 Labs: Laboratory Last Values WBC 7.4 K/mm3 (4.5-11.0) 05/21/21 04:03 RBC 4.48 M/mm3 (3.65-5.03) 05/21/21 04:03 Hgb 12.0 gm/dl (11.8-15.2) 05/21/21 04:03 Hct 37.5 % (35.5-45.6) 05/21/21 04:03 MCV 84 fl (84-94) 05/21/21 04:03 MCH 27 pg (28-32) L 05/21/21 04:03 MCHC 32 % (32-34) 05/21/21 04:03 RDW 15.5 % (13.2-15.2) H 05/21/21 04:03 Plt Count 329 K/mm3 (140-440) 05/21/21 04:03 Lymph % (Auto) 20.2 % (13.4-35.0) 05/20/21 02:53 [place] % (Auto) Supervisor [employer] 05/21/21 04:03 Eos % (Auto) 1.6 % (0.0-4.3) 05/20/21 02:53 Baso % (Auto) 0.4 % (0.0-1.8) 05/20/21 02:53 Lymph # (Auto) 1.9 K/mm3 (1.2-5.4) 05/20/21 02:53 [place] # (Auto) 0.9 K/mm3 (0.0-0.8) H 05/20/21 02:53 Eos # (Auto) 0.2 K/mm3 (0.0-0.4) 05/20/21 02:53 Baso # (Auto) 0.0 K/mm3 (0.0-0.1) 05/20/21 02:53 Add Manual Diff Complete 05/21/21 04:03 Total Counted 100 05/21/21 04:03 Seg Neutrophils % 68.4 % (40.0-70.0) 05/20/21 02:53 Seg Neuts % (Manual) 76.0 % (40.0-70.0) H 05/21/21 04:03 Lymphocytes % (Manual) 8.0 % (13.4-35.0) L 05/21/21 04:03 Monocytes % (Manual) 15.0 % (0.0-7.3) H 05/21/21 04:03 Eosinophils % (Manual) 1.0 % (0.0-4.3) 05/21/21 04:03 Nucleated RBC % Not Reportable 05/21/21 04:03 Seg Neutrophils # 6.5 K/mm3 (1.8-7.7) 05/20/21 02:53 Seg Neutrophils # Man 5.6 K/mm3 (1.8-7.7) 05/21/21 04:03 Band Neutrophils # 0.0 K/mm3 05/21/21 04:03 Lymphocytes # (Manual) 0.6 K/mm3 (1.2-5.4) L 05/21/21 04:03 Abs React Lymphs (Man) 0.0 K/mm3 05/21/21 04:03 Monocytes # (Manual) 1.1 K/mm3 (0.0-0.8) H 05/21/21 04:03 Eosinophils # (Manual) 0.1 K/mm3 (0.0-0.4) 05/21/21 04:03 Basophils # (Manual) 0.0 K/mm3 (0.0-0.1) 05/21/21 04:03 Metamyelocytes # 0.0 K/mm3 05/21/21 04:03 Myelocytes # 0.0 K/mm3 05/21/21 04:03 Promyelocytes # 0.0 K/mm3 05/21/21 04:03 Blast Cells # 0.0 K/mm3 05/21/21 04:03 WBC Morphology Not Reportable 05/21/21 04:03 Hypersegmented Neuts Not Reportable 05/21/21 04:03 Hyposegmented Neuts Not Reportable 05/21/21 04:03 Hypogranular Neuts Not Reportable 05/21/21 04:03 Smudge Cells Not Reportable 05/21/21 04:03 Toxic Granulation Not Reportable 05/21/21 04:03 Toxic Vacuolation Not Reportable 05/21/21 04:03 Dohle Bodies Not Reportable 05/21/21 04:03 Pelger-Huet Anomaly Not Reportable 05/21/21 04:03 Nicolás Rods Not Reportable 05/21/21 04:03 Platelet Estimate Consistent w auto 05/21/21 04:03 Clumped Platelets Not Reportable 05/21/21 04:03 Plt Clumps, EDTA Not Reportable 05/21/21 04:03 Large Platelets Not Reportable 05/21/21 04:03 Giant Platelets Not Reportable 05/21/21 04:03 Platelet Satelliting Not Reportable 05/21/21 04:03 Plt Morphology Comment Not Reportable 05/21/21 04:03 RBC Morphology Not Reportable 05/21/21 04:03 Dimorphic RBCs Not Reportable 05/21/21 04:03 Polychromasia Not Reportable 05/21/21 04:03 Hypochromasia Not Reportable 05/21/21 04:03 Poikilocytosis Not Reportable 05/21/21 04:03 Anisocytosis Not Reportable 05/21/21 04:03 Microcytosis Not Reportable 05/21/21 04:03 Macrocytosis Not Reportable 05/21/21 04:03 Spherocytes Not Reportable 05/21/21 04:03 Pappenheimer Bodies Not Reportable 05/21/21 04:03 Sickle Cells Not Reportable 05/21/21 04:03 Target Cells Not Reportable 05/21/21 04:03 Tear Drop Cells Not Reportable 05/21/21 04:03 Ovalocytes Few 05/21/21 04:03 Helmet Cells Not Reportable 05/21/21 04:03 [place] Bodies Not Reportable 05/21/21 04:03 [place] Rings Not Reportable 05/21/21 04:03 [place] Cells Not Reportable 05/21/21 04:03 Bite Cells Not Reportable 05/21/21 04:03 Crenated Cell Not Reportable 05/21/21 04:03 Elliptocytes Not Reportable 05/21/21 04:03 Acanthocytes (Spur) Not Reportable 05/21/21 04:03 Rouleaux Not Reportable 05/21/21 04:03 Hemoglobin C Crystals Not Reportable 05/21/21 04:03 Schistocytes Not Reportable 05/21/21 04:03 Malaria parasites Not Reportable 05/21/21 04:03 [place] Bodies Not Reportable 05/21/21 04:03 Hem Pathologist Commnt No 05/21/21 04:03 PT 13.9 Sec. (12.2-14.9) 05/21/21 04:03 INR 0.96 (0.87-1.13) 05/21/21 04:03 APTT 118.2 Sec. (24.2-36.6) H* 05/20/21 09:28 Heparin Anti-Xa Level 0.61 U.I./ml (0.3-0.7) 05/20/21 12:29 Sodium 136 mmol/L (137-145) L 05/21/21 04:03 Potassium 3.6 mmol/L (3.6-5.0) 05/21/21 04:03 Chloride 102.0 mmol/L (98-107) 05/21/21 04:03 Carbon Dioxide 23 mmol/L (22-30) 05/21/21 04:03 Anion Gap 15 mmol/L 05/21/21 04:03 BUN 13 mg/dL (9-20) 05/21/21 04:03 Creatinine 0.9 mg/dL (0.8-1.3) 05/21/21 04:03 Estimated GFR > 60 ml/min 05/21/21 04:03 BUN/Creatinine Ratio 14 % 05/21/21 04:03 Glucose 112 mg/dL (75-100) H 05/21/21 04:03 POC Glucose 99 mg/dL (70-105) 05/21/21 11:17 Calcium 8.3 mg/dL (8.4-10.2) L 05/21/21 04:03 Phosphorus 2.40 mg/dL (2.5-4.5) L 05/21/21 04:03 Magnesium 1.80 mg/dL (1.7-2.3) 05/21/21 04:03 Troponin T 6.820 ng/mL (0.00-0.029) H* D 05/21/21 04:03 Triglycerides 43 mg/dL (2-149) 05/20/21 02:53 Cholesterol 107 mg/dL (50-199) 05/20/21 02:53 LDL Cholesterol Direct 52 mg/dL (50-130) 05/20/21 02:53 HDL Cholesterol 52 mg/dL (40-59) 05/20/21 02:53 Cholesterol/HDL Ratio 2.05 % 05/20/21 02:53 Blood Type O POSITIVE 05/20/21 02:55 Antibody Screen Negative 05/20/21 02:55 Jules/IV: Voiding Method Urinal Active Medications - Current Medications Current Medications: Generic Name Dose Route Start Last Admin Trade Name Freq PRN Reason Stop Dose Admin Acetaminophen 650 mg 05/20/21 03:36 05/21/21 04:36 Acetaminophen 325 Mg Tab PO 650 mg Q6H PRN Administration TEMP > 100.4 Hydrocodone Bitart/Acetaminophen 1 each 05/21/21 08:46 Hydrocodone/Acetaminophen 5-325 Mg Tab PO Q4H PRN Pain, Moderate (4-6) Aspirin 325 mg 05/21/21 06:00 05/21/21 06:11 Aspirin Ec 325 Mg Tab PO 325 mg QDAY STEPHANIE Administration Atorvastatin Calcium 40 mg 05/20/21 22:00 05/20/21 21:30 Atorvastatin 40 Mg Tab PO 40 mg QHS STEPHANIE Administration Carvedilol 3.125 mg 05/20/21 10:00 05/20/21 21:30 Carvedilol 3.125 Mg Tab PO 3.125 mg BID STEPHANIE Administration Clopidogrel Bisulfate 75 mg 05/21/21 06:00 05/21/21 06:10 Clopidogrel 75 Mg Tab PO 75 mg QDAY STEPHANIE Administration Heparin Sodium/Sodium Chloride 25,000 unit in 500 mls @ 20 mls/hr 05/20/21 06:00 05/20/21 06:49 Heparin/ 0.45% Nacl-25,000 Unit/500 Ml IV 1,000 units/hr TITRATE STEPHANIE 20 mls/hr Administration Protocol 1,000 UNITS/HR Sodium Chloride 1,000 mls @ 50 mls/hr 05/21/21 05:30 05/21/21 07:24 Nacl 0.9% 1000 Ml IV 50 mls/hr DIRECT STEPHANIE Administration Dopamine HCl/Dextrose 800 mg in 250 mls @ 3.062 mls/hr 05/21/21 11:00 Intropin Drip 800 Mg/D5w 250 Ml IV TITR STEPHANIE Protocol 2 MCG/KG/MIN Losartan Potassium 25 mg 05/20/21 10:00 05/20/21 10:42 Losartan 25 Mg Tab PO 25 mg QDAY STEPHANIE Administration Magnesium Hydroxide 30 ml 05/20/21 03:36 Magnesium Hydroxide (Mom) Oral Liqd Udc PO Q4H PRN Constipation Morphine Sulfate 2 mg 05/20/21 03:36 Morphine 4 Mg/1 Ml Inj IV Q5MIN PRN Chest Pain unrelieved by NTG Nitroglycerin 0.4 mg 05/20/21 03:36 Nitroglycerin 0.4 Mg Tab Subl SL Q5M PRN Chest Pain Ondansetron HCl 4 mg 05/20/21 03:36 Ondansetron 4 Mg/2 Ml Inj IV Q8H PRN Nausea And Vomiting Sodium Chloride 10 ml 05/20/21 10:00 05/20/21 21:31 Sodium Chloride 0.9% 10 Ml Flush Syringe IV 10 ml BID STEPHANIE Administration Sodium Chloride 10 ml 05/20/21 03:36 Sodium Chloride 0.9% 10 Ml Flush Syringe IV PRN PRN LINE FLUSH Tramadol HCl 50 mg 05/21/21 08:46 Tramadol 50 Mg Tab PO Q4H PRN Pain, Mild (1-3)
[2021-05-21] MEDS: carvediloL 3.125 MG TAB PO SCH ×2 (13:11→21:04)
[2021-05-21] MEDS: LOSARTAN 25 MG TAB PO SCH (13:12)
[2021-05-21 14:42] LABS: Amphetamine Screen,Urine Negative; Cannabinoid Screen,Urine Negative; Cocaine Screen,Urine Negative; Methadone Screen,Urine Negative; Opiate Screen,Urine Negative
--- NOTE | 2021-05-21 14:45 | Progress Note ---
Assessment and Plan Acute ST-elevation myocardial infarction Tobacco use disorder Hypertension Hypokalemia Medication and medical care noncompliance Polysubstance abuse - prn wean supplemental oxygen to keep O2 sats > 90% - continue bronchodilators (LEV) with pulm hygiene per RT - continue B-blockers, antiplatelet and anti-lipid therapy - avoid nephrotoxins, renally dose all medications - mobility protocols to prevent pressure ulcers - PT/OT as tolerated - Wound care per RN/WCT - continue accuchecks with glycemic control per SSI for target blood glucose < 180 mg/dL - Smoking cessation strongly counseled at the bedside - home oxygen evaluation at discharge - GI & VTE prophylaxis - Flu & pneumovax per protocol - prn analgesia per pain score - continue other care per attending / other consultants ... transfer to telemetry ... re-evaluate in am & prn Subjective Date of service: 05/21/21 Principal diagnosis: STEMI; Tobacco use disorder; HTN; Polysubstance abuse Interval history: Patient is seen today for: STEMI; Tobacco use disorder; HTN; Medication and medical care noncompliance; Polysubstance abuse Seen and examined at bedside; 24hour events reviewed; nursing and respiratory care staff consulted; no adverse overnight events reported to me; resting p eacefully in bed; went on dopamine drip overnight but weaned off; no N/V/F/C/chest pain Objective Vital Signs - 12hr 05/21/21 05/21/21 05/21/21 03:00 03:30 04:00 Temperature 100.6 F H Pulse Rate 92 H 87 99 H Respiratory 28 H 31 H 30 H Rate Blood Pressure 112/81 110/83 125/88 O2 Sat by Pulse 100 99 97 Oximetry 05/21/21 05/21/21 05/21/21 04:30 05:00 05:30 Temperature Pulse Rate 87 93 H 88 Respiratory 30 H 16 20 Rate Blood Pressure 100/73 103/76 108/75 O2 Sat by Pulse 100 97 99 Oximetry 05/21/21 05/21/21 05/21/21 06:00 06:30 08:00 Temperature Pulse Rate 87 86 Respiratory 26 H 20 21 Rate Blood Pressure 105/77 100/76 O2 Sat by Pulse 99 98 100 Oximetry 05/21/21 05/21/21 05/21/21 08:56 09:00 09:01 Temperature Pulse Rate 83 93 H Respiratory 19 33 H Rate Blood Pressure 98/57 98/57 O2 Sat by Pulse 97 96 96 Oximetry 05/21/21 05/21/21 05/21/21 09:30 10:00 10:30 Temperature Pulse Rate 80 88 86 Respiratory 17 24 26 H Rate Blood Pressure 104/75 97/72 79/54 O2 Sat by Pulse 98 99 96 Oximetry 05/21/21 05/21/21 05/21/21 11:00 11:30 11:51 Temperature 98.9 F Pulse Rate 89 89 Respiratory 21 24 Rate Blood Pressure 86/62 102/76 O2 Sat by Pulse 99 97 Oximetry 05/21/21 12:00 Temperature Pulse Rate 87 Respiratory 15 Rate Blood Pressure 104/81 O2 Sat by Pulse 99 Oximetry Constitutional: no acute distress Eyes: non-icteric ENT: oropharynx moist Neck: supple Effort: normal Ascultation: Bilateral: clear Percussion: Bilateral: not dull Cardiovascular: regular rate and rhythm Gastrointestinal: normoactive bowel sounds, soft, non-tender, non-distended Integumentary: normal Extremities: no cyanosis, no edema, pulses normal, no ischemia or petechiae Neurologic: non-focal exam, pupils equal and round, CN II-XII normal, motor strength normal and Psychiatric: mood appropriate, affect normal CBC and BMP: 05/21/21 04:03 05/21/21 04:03 ABG, PT/INR, D-dimer: PT/INR, D-dimer PT 13.9 Sec. (12.2-14.9) 05/21/21 04:03 INR 0.96 (0.87-1.13) 05/21/21 04:03 Abnormal lab findings: Abnormal Labs 05/20/21 05/20/21 05/20/21 02:53 02:53 09:28 Hgb MCH 27 L MCHC 31 L RDW 16.0 H [place] % (Auto) 9.4 H [place] # (Auto) 0.9 H Seg Neuts % (Manual) Lymphocytes % (Manual) Monocytes % (Manual) Lymphocytes # (Manual) Monocytes # (Manual) APTT Sodium Potassium 3.2 L Creatinine Glucose 155 H POC Glucose Calcium Phosphorus Troponin T 0.034 H 4.660 H* D 05/20/21 05/20/21 05/20/21 09:28 09:28 09:28 Hgb 11.4 L MCH MCHC RDW [place] % (Auto) [place] # (Auto) Seg Neuts % (Manual) Lymphocytes % (Manual) Monocytes % (Manual) Lymphocytes # (Manual) Monocytes # (Manual) APTT 118.2 H* Sodium Potassium Creatinine 0.7 L Glucose 103 H POC Glucose Calcium 8.1 L Phosphorus Troponin T 05/21/21 05/21/21 05/21/21 04:03 04:03 04:21 Hgb MCH 27 L MCHC RDW 15.5 H [place] % (Auto) [place] # (Auto) Seg Neuts % (Manual) 76.0 H Lymphocytes % (Manual) 8.0 L Monocytes % (Manual) 15.0 H Lymphocytes # (Manual) 0.6 L Monocytes # (Manual) 1.1 H APTT Sodium 136 L Potassium Creatinine Glucose 112 H POC Glucose 115 H Calcium 8.3 L Phosphorus 2.40 L Troponin T 6.820 H* D Allied health notes reviewed: nursing
[2021-05-21 14:59] LABS: Benzodiazepines Screen,Urine Positive
[2021-05-21] MEDS ORDERED: POTASSIUM CHLORIDE ER 20 MEQ TAB PO ONE ×2 (16:42→21:00)
[2021-05-21] MEDS ORDERED: MAGNESIUM SULFATE 2 GM/50 ML BAG IV ONE ×2 (16:42→21:00)
[2021-05-22 06:33] LABS: Hematocrit 34.5 % (35.5-45.6); Hemoglobin 11.1 gm/dl (11.8-15.2); Mean Corpuscular HGB Conc 32 % (32-34); Mean Corpuscular Volume 84 fl (84-94); Platelet Count 305 K/mm3 (140-440); Red Blood Count 4.11 M/mm3 (3.65-5.03); Red Cell Distribution Width 15.7 % (13.2-15.2)
[2021-05-22 06:56] LABS: BUN/Creatinine Ratio 13; Blood Urea Nitrogen 12 mg/dL (9-20); Calcium 7.7 mg/dL (8.4-10.2); Hemolysis Index 0
[2021-05-22] MEDS ORDERED: ASPIRIN EC 325 MG TAB PO SCH (08:35)
[2021-05-22 09:51] VITALS: BP 107/79
[2021-05-22] MEDS: CLOPIDOGREL 75 MG TAB PO SCH (09:53)
[2021-05-22] MEDS: carvediloL 3.125 MG TAB PO SCH (09:53)
[2021-05-22] MEDS: LOSARTAN 25 MG TAB PO SCH (09:54)
[2021-05-22] MEDS ORDERED: ASPIRIN EC 81 MG TAB PO SCH (10:00)
[2021-05-22] MEDS ORDERED: SODIUM PHOSPHATE 45 MMOL in SODIUM CHLORIDE 0.9% 500 ML 500 ML IV ONE (10:00)
--- NOTE | 2021-05-22 10:31 | Progress Note ---
Assessment and Plan Coronary artery disease s/p coronary artery stent * Dual antiplatelet therapy with ASA 81 mg/Plavix 75 mg x 1 year Cardiomyopathy * GDMT: ASA, Coreg 3.125 mg twice daily, losartan 25 mg daily, atorvastatin 40 mg daily Patient currently in stable cardiac condition. Patient may discharge from cardiology standpoint. Will follow on as-needed basis Patient should follow-up with Dr Peterson, [facility] heart specialists on 06/11/21 at 3PM in our [place] location. #[phone] Pt seen in conjunction with Dr. Sotero Zelaya, who agrees with the assessment and plan of care. - Patient Problems (1) STEMI (ST elevation myocardial infarction) Current Visit: Yes Status: Acute Qualifiers: Involved coronary artery: LAD coronary artery Qualified Code(s): I21.02 - ST elevation (STEMI) myocardial infarction involving left anterior descending coronary artery (2) Ischemic cardiomyopathy Current Visit: Yes Status: Acute (3) CAD (coronary artery disease) Current Visit: Yes Status: Chronic Qualifiers: Coronary Disease-Associated Artery/Lesion type: [place] artery [place] vs. transplanted heart: [place] heart (4) Stented coronary artery Current Visit: Yes Status: Chronic (5) Hypertension Current Visit: Yes Status: Chronic Qualifiers: Hypertension type: primary hypertension Qualified Code(s): I10 - Essential (primary) hypertension (6) Tobacco abuse Current Visit: Yes Status: Chronic (7) Cocaine abuse Current Visit: Yes Status: Chronic Subjective Date of service: 05/22/21 Principal diagnosis: STEMI; Tobacco use disorder; HTN; Polysubstance abuse Interval history: Patient resting comfortably in bed, no shortness of breath or chest pain overnight. Telemetry shows sinus rhythm 96 with no events. Objective Last Vital Signs Temp 98.0 F 05/22/21 08:22 Pulse 93 H 05/22/21 08:22 Resp 18 05/22/21 08:22 BP 107/79 05/22/21 08:22 Pulse Ox 97 05/22/21 08:22 - Physical Examination General: No Apparent Distress HEENT: Positive: EOMI, Normocephaly Neck: Positive: neck supple, trachea midline. Negative: JVD/HJR Cardiac: Positive: Reg Rate and Rhythm Lungs: Positive: Normal Exam, Normal Breath Sounds Neuro: Positive: Grossly Intact Abdomen: Positive: Soft. Negative: Tender Skin: Negative: Rash Incision: Cardiac Cath Site (R radial & R groin clean/dry/intact, no evidence of bleeding or hematoma) Musculoskeletal: No Pain Extremities: Present: lower extr. pulses. Absent: edema - Labs and Meds CBC 05/22/21 Range/Units 05:28 WBC 5.7 (4.5-11.0) K/mm3 RBC 4.11 (3.65-5.03) M/mm3 Hgb 11.1 L (11.8-15.2) gm/dl Hct 34.5 L (35.5-45.6) % Plt Count 305 (140-440) K/mm3 Comprehensive Metabolic Panel 05/22/21 Range/Units 05:28 Sodium 138 (137-145) mmol/L Potassium 4.0 (3.6-5.0) mmol/L Chloride 105.4 (98-107) mmol/L Carbon Dioxide 21 L (22-30) mmol/L BUN 12 (9-20) mg/dL Creatinine 0.9 (0.8-1.3) mg/dL Glucose 93 (75-100) mg/dL Calcium 7.7 L (8.4-10.2) mg/dL - Imaging and Cardiology EKG: report reviewed, image reviewed Echo: report reviewed (05/20/2021 - EF 35-40%, severe akinesis of apex wall, hypokinesis of inferoseptal wall, mild LVH, mild-mod MR) Cardiac cath: report reviewed - Telemetry EKG Rhythm: Sinus Rhythm - EKG Sinus rhythms and dysrhythmias: sinus rhythm Myocardial infarction: anterior MT (acute or rec - Allied health notes Allied health notes reviewed: nursing
--- NOTE | 2021-05-22 13:18 | Discharge Summary ---
Providers - Providers Date of Admission: 05/20/21 03:08 Date of discharge: 05/22/21 Attending physician: TAYLOR DE JESUS MD 05/20/21 Consult to Cardiac Rehabilitation [CONS] Routine Reason For Exam: Phase I Consult to Cardiac Rehabilitation [CONS] Routine Reason For Exam: post pci 05/20/21 02:47 Consult to Cardiology [CONS] Stat Consulting Provider: SHREE PATEL Reason For Exam: stemi 05/20/21 03:39 Consult to Dietitian/Nutrition [CONS] Routine Physician Instructions: Reason For Exam: Reason for Consult: Diet education 05/20/21 05:50 Consult to Physician [CONS] Routine Comment: Consulting Provider: GALE CORADO Physician Instructions: Reason For Exam: STEMI - S/P Cardiac cath 05/21/21 08:46 Consult to Cardiac Rehabilitation [CONS] Routine Reason For Exam: Cardiac Rehab Evaluation Primary care physician: FARM ADVISOR Hospitalization Reason for admission: STEMI Condition: Stable Procedures: Cardiac catheterization 05/20 & 05/21 Hospital course: 51-year-old male with history of hypertension and coronary artery disease who presented to the ED with ongoing chest pain. He had stents placed at outside hospital within the last year and was noncompliant with DAPT. EKG showed ST elevations in lateral leads. He was taken emergently to the Counselor Manager. Cardiac catheterization showed an occluded stent in the mid LAD. Patient was admitted to ICU and started on Aggrastat and heparin. Echocardiogram showed mildly dilated left ventricle, mild diastolic dysfunction and LVEF of 35 to 40%. He was taken back to the Counselor Manager the next day with STEFF placement in OM1. He was started on low-dose dopamine for hypotension. Hypotension resolved and patient was transferred out of the ICU. Patient remained chest pain-free and was discharged home with medications and cardiology follow-up. Disposition: 01 HOME / SELF CARE / HOMELESS Final Discharge Diagnosis (Prints w/discharge instructions): Combined systolic and diastolic heart failure. Coronary artery disease. Medication noncompliance. STEMI. Hypokalemia. Polysubstance abuse Time spent for discharge: 30 minutes Core Measure Documentation - Palliative Care Palliative Care/ Comfort Measures: Not Applicable - Core Measures Any of the following diagnoses?: acute IL - Acute IL Discharge Requirements Aspirin at discharge: Yes MIKE/ARB for LVSD if EF <40%: Yes Beta morena at discharge: Yes Statin for LDL = or >100 mg/dl on DC: Yes - Heart Failure Discharge Requirements MIKE/ARB for LVSD if EF <40%: Yes Beta morena at discharge: Yes Exam - Physical Exam Narrative exam: GENERAL: Well-developed well-nourished. In bed, no acute distress. HEENT: Normocephalic. Atraumatic. CHEST/LUNGS: CTAB on room air HEART/CARDIOVASCULAR: RRR. No murmur, rubs or gallops appreciated. ABDOMEN: +BS. NT/ND. SKIN: No rashes noted. NEURO: No focal motor deficit. Follows all commands. MUSCULOSKELETAL: No joint effusion EXTREMITIES: No cyanosis, cLubbing or edema. PSYCH: Cooperative. - Constitutional Vitals: Temp Pulse Resp BP Pulse Ox 98.0 F 93 H 18 107/79 98 05/22/21 08:22 05/22/21 08:22 05/22/21 12:12 05/22/21 08:22 05/22/21 12:12 Plan Care Plan Goals: Follow-up with your primary care provider. You will need to take aspirin and Plavix daily for 1 year to prevent your stents from closing. You have an appointment with Dr. Patel at [facility] on 06/11/2021 at 3 PM at the [place] location. You can call [phone] for further details. Assessment: Patient presented with chest pain. Found to have NSTEMI. Taken to the Counselor Manager. 1 stent was placed. Patient was counseled about importance of compliance with DAPT. Once stable discharged home. Follow up with: TERESA WANG MD [Primary Care Provider] - 7 Days SHREE PATEL MD [Staff Physician] - 06/11/21 3:00 pm Prescriptions: AtorvaSTATin [Lipitor] 40 mg PO QHS 30 Days #30 tablet carvediloL [Coreg] 3.125 mg PO BID 30 Days #60 tablet Losartan [Cozaar] 25 mg PO QDAY 30 Days #30 tablet Aspirin EC [Halfprin EC] 81 mg PO QDAY 30 Days #30 tablet Nitroglycerin [Nitrostat] 0.4 mg SL Q5M PRN 30 Days #30 tablet PRN Reason: Chest Pain Clopidogrel [Plavix] 75 mg PO QDAY 30 Days #30 tablet
== END 2021-05-22 20:00 | disposition home or self-care (01) | DRG 246 ==
LOC: ED 02:37 → CC1 03:08 → 4A 05-21 22:46
PROVIDERS: ADMIT Internal Medicine Geriatric Medicine; ATTEND Student in an Organized Health Care Education/Training Program
PROC: 4A023N7 Measurement of Cardiac Sampling and Pressure, Left Heart, Percutaneous Approach (ICD-10-PCS; principal; 2021-05-20)
PROC: 02703ZZ Dilation of Coronary Artery, One Artery, Percutaneous Approach (ICD-10-PCS; 2021-05-20)
PROC: B2111ZZ Fluoroscopy of Multiple Coronary Arteries using Low Osmolar Contrast (ICD-10-PCS; 2021-05-20)
PROC: B2151ZZ Fluoroscopy of Left Heart using Low Osmolar Contrast (ICD-10-PCS; 2021-05-20)
PROC: 027034Z Dilation of Coronary Artery, One Artery with Drug-eluting Intraluminal Device, Percutaneous Approach (ICD-10-PCS; 2021-05-21)
PROC: B241ZZ3 Ultrasonography of Multiple Coronary Arteries, Intravascular (ICD-10-PCS; 2021-05-21)
DX: T82.867A Thrombosis due to cardiac prosthetic devices, implants and grafts, initial encounter (principal); I21.3 ST elevation (STEMI) myocardial infarction of unspecified site; I50.40 Unspecified combined systolic (congestive) and diastolic (congestive) heart failure; E87.6 Hypokalemia; I25.5 Ischemic cardiomyopathy; Y84.0 Cardiac catheterization as the cause of abnormal reaction of the patient, or of later complication, without mention of misadventure at the time of the procedure; Y92.89 Other specified places as the place of occurrence of the external cause; Z82.49 Family history of ischemic heart disease and other diseases of the circulatory system; Z91.19 Patient's noncompliance with other medical treatment and regimen; F17.200 Nicotine dependence, unspecified, uncomplicated; E78.5 Hyperlipidemia, unspecified; I25.10 Atherosclerotic heart disease of native coronary artery without angina pectoris; F14.10 Cocaine abuse, uncomplicated; I11.0 Hypertensive heart disease with heart failure
CPT/HCPCS: 36415; 71045; 80048; 80061; 80307; 82962; 83735; 84100; 84484; 85007; 85014; 85018; 85025; 85027; 85049; 85520; 85610; 85730; 86850; 86900; 86901; 87641; 92920; 92928; 92978; 93005; 93306; 93458; 93799; 99291; 99406; G0378; J1815; J3490; Q0162; C1725; C1753; C1757; C1769; C1874; C1887; C1894; C9600; J0171; J0461; J1250; J1265; J1644; J2001; J2250; J2370; J2765; J3010; J3246; J3475; J7030; J7040; Q9967